=== PATIENT | male | born 1990 | race Caucasian/White ===

== ENCOUNTER 2017-04-09 00:20 | Emergency (ER) | payer MEDICAID ==
[2017-04-09 00:24] VITALS: RESP 18
[2017-04-09] MEDS ORDERED: methylPREDNISolone SOD SUCCI 125 MG/2 ML VIAL IV STA (00:47)
[2017-04-09] MEDS ORDERED: FAMOTIDINE 20 MG/2 ML VIAL IV STA (00:47)
[2017-04-09] MEDS ORDERED: EPINEPHrine 1 MG/ML 1 ML AMP IM STA (00:48)
--- NOTE | 2017-04-09 01:22 | ED ---
Allergic Reaction HPI - General Chief complaint: Allergic Reaction Stated complaint: allergic reaction Time Seen by Provider: 04/09/17 00:47 Source: patient, RN notes reviewed Mode of arrival: ambulatory Limitations: no limitations - History of Present Illness Initial Comments: this is a 26-year-old male presents emergency from for ALLERGIC reaction. Patient states to have ALLERGIC reactions in the past similar to this and states he is use EpiPen. Patient states that he started earlier with lip swelling took some Benadryl no relief. Patient states that he feels itching slightly has is. Patient states that he does not know what was different today. He states that he normal foods that he usually eats. Patient states his testicle positive on ALLERGY testing for week and test bites. - Related Data Previous Rx's Medication Instructions Recorded EPINEPHrine (Auto Inject) [Epipen] 0.3 mg IM ONCE PRN #1 pack 04/09/17 Allergies Allergy/AdvReac Type Severity Reaction Status Date / Time No Known Allergies Allergy Verified 04/09/17 00:24 Review of Systems ROS Statement: Those systems with pertinent positive or pertinent negative responses have been documented in the HPI. ROS Other: All systems not noted in ROS Statement are negative. Past Medical History Past Medical History: No Reported History History of Any Multi-Drug Resistant Organisms: None Reported Past Surgical History: No Surgical Hx Reported Past Psychological History: No Psychological Hx Reported Smoking Status: Never smoker Past Alcohol Use History: Occasional Past Drug Use History: None Reported General Exam Limitations: no limitations General appearance: alert, in no apparent distress Head exam: Present: atraumatic, normocephalic, normal inspection Eye exam: Present: normal appearance, PERRL, EOMI. Absent: scleral icterus, conjunctival injection, periorbital swelling ENT exam: Present: mucous membranes moist, TM's normal bilaterally, normal external ear exam. Absent: normal oropharynx (mild angioedema noted) Neck exam: Present: normal inspection, full ROM. Absent: tenderness, meningismus, lymphadenopathy Respiratory exam: Present: normal lung sounds bilaterally. Absent: respiratory distress, wheezes, rales, rhonchi, stridor Cardiovascular Exam: Present: normal rhythm, tachycardia, normal heart sounds. Absent: systolic murmur, diastolic murmur, rubs, gallop, clicks Course Vital Signs 04/09/17 00:22 Temperature 97.2 F L Pulse Rate 110 H Respiratory 18 Rate Blood Pressure 142/92 O2 Sat by Pulse 96 Oximetry - Reevaluation(s) Reevaluation #1: 04/09/17 01:40 patient was reevaluated states that he is symptom-free patient states all symptoms have resolved. Patient has been present for 1 hour. After medications Medical Decision Making - Medical Decision Making 26-year-old male presented for ALLERGIC reaction. Patient be discharged with epinephrine. Patient states he has his symptoms have completely resolved. Return parameters discussed. Disposition Clinical Impression: Allergic reaction Disposition: HOME SELF-CARE Condition: Stable Instructions: Anaphylaxis (ED) Additional Instructions: Please return to the Emergency Department if symptoms worsen or any other concerns. Prescriptions: EPINEPHrine (Auto Inject) [Epipen] 0.3 mg IM ONCE PRN #1 pack PRN Reason: Anaphylaxis Referrals: John Chavez MD [Primary Care Provider] - 1-2 days Time of Disposition: 01:41
[2017-04-09 01:57] VITALS: BP 157/90; PULSE 105; TEMP 98
== END 2017-04-09 01:57 | disposition home or self-care (01) ==
LOC: EC 00:20
DX: T78.40XA Allergy, unspecified, initial encounter (principal); T78.3XXA Angioneurotic edema, initial encounter
CPT/HCPCS: 99283; 96374; 96375; 96372; J0171; J2930

== ENCOUNTER → 2017-04-19 | Outpatient (CLI) | payer MEDICAID ==
[2017-04-19 19:46] LABS: ANA w/Reflex to Titer NEGATIVE (NEGATIVE); Gliadin AB IgA, Deaminated NEGATIVE (NEGATIVE); Gliadin AB IgG, Deaminated NEGATIVE (NEGATIVE); Gliadin AB IgG, Unit 0.5 U/mL; Tis Transglutaminase IgA Unit <0.5 AI; Tis Transglutaminase IgG Unit <0.8 U/mL
[2017-04-22 13:33] LABS: Barley IgE <0.35 kU/L (<0.35); Barley IgE Class CLASS 0; Celery IgE <0.35 kU/L (<0.35); Celery IgE Class CLASS 0; Gluten IgE Class CLASS I; Oat IgE Class CLASS 0; Rye (Food) IgE <0.35 kU/L (<0.35); Rye (Food) IgE Class CLASS 0
[2017-04-22 14:53] LABS: Mis test requested (Blood) Sesame Seed IgE
== END ==
LOC: LABWHC1 11:34
PROVIDERS: ATTEND Physician Assistant
DX: T78.09XD Anaphylactic reaction due to other food products, subsequent encounter (principal)
CPT/HCPCS: 36415; 82785; 83516; 83520; 86003; 86038

== ENCOUNTER → 2018-08-19 | Outpatient (CLI) | payer MEDICAID ==
[2018-08-19 11:20] LABS: HCT 46.5 % (39.0-53.0); HGB 15.2 gm/dL (13.0-17.5); MCH 30.8 pg (25.0-35.0); MCHC 32.7 g/dL (31.0-37.0); MCV 94.4 fL (80.0-100.0); Mean Platelet Volume 6.6; Platelet Count 340 k/uL (150-450); RBC 4.93 m/uL (4.30-5.90); RDW 12.1 % (11.5-15.5); WBC 7.6 k/uL (3.8-10.6)
[2018-08-19 17:03] LABS: Albumin 4.5 g/dL (3.80-4.90); Albumin/Globulin Ratio 1.88 (1.20-2.10); Anion Gap 8.7 mmol/L (4.00-12.00); Calcium 9.3 mg/dL (8.7-10.3); Carbon Dioxide 26.3 mmol/L (21.6-31.8); Globulin 2.4 g/dL (2.1-3.7); LDL Cholesterol,Calculated 161.4 mg/dL (0.0-131.0); Potassium 4.1 mmol/L (3.5-5.5); Total Bilirubin 0.6 mg/dL (0.3-1.2); Total Protein 6.9 g/dL (6.2-8.2); VLDL Calculation 29.6 mg/dL (5.00-40.00)
== END | disposition home or self-care (01) ==
LOC: LABWHC1 10:22
PROVIDERS: ATTEND Family Medicine
DX: Z00.00 Encounter for general adult medical examination without abnormal findings (principal)
CPT/HCPCS: 36415; 80053; 80061; 85027

== ENCOUNTER 2019-01-25 08:17 | Emergency (ER) | payer MEDICAID ==
[2019-01-25 08:23] VITALS: BP 142/81; PULSE 98; RESP 18; TEMP 98.3
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
--- NOTE | 2019-01-25 08:54 | XR ---
EXAMINATION TYPE: XR ankle limited RT , 2 VIEWS DATE OF EXAM ORDERED: 01/25/2019 HISTORY: Pain. COMPARISON: None. FINDINGS: No fracture, dislocation or ankle joint effusion is seen. IMPRESSION: NO ACUTE OSSEOUS LESION.
--- NOTE | 2019-01-25 08:55 | XR ---
EXAMINATION TYPE: XR foot complete RT , 3 VIEWS DATE OF EXAM ORDERED: 01/25/2019 HISTORY: Pain. COMPARISON: None. FINDINGS: No fracture, dislocation or other acute osseous lesion is seen. IMPRESSION: NO ACUTE OSSEOUS LESION.
== END 2019-01-25 09:59 | disposition home or self-care (01) ==
LOC: EC 08:17
DX: S93.601A Unspecified sprain of right foot, initial encounter (principal); W17.81XA Fall down embankment (hill), initial encounter; Y93.89 Activity, other specified
CPT/HCPCS: 99284

== ENCOUNTER 2020-05-01 22:06 | Emergency (ER) | payer BC, MEDICAID ==
[2020-05-01 22:12] VITALS: RESP 18; TEMP 97.8
[2020-05-01] MEDS ORDERED: methylPREDNISolone SOD SUCCI 125 MG/2 ML VIAL IV STA (22:20)
[2020-05-01] MEDS ORDERED: FAMOTIDINE 20 MG/2 ML VIAL IV STA (22:20)
--- NOTE | 2020-05-01 23:34 | ED ---
Allergic Reaction HPI - General Chief complaint: Allergic Reaction Stated complaint: allergic reaction Time Seen by Provider: 05/01/20 22:13 Source: patient Mode of arrival: ambulatory Limitations: no limitations - History of Present Illness Initial Comments: 29-year-old male patient presents to the emergency department today for evaluation of generalized hives and itching. Patient states he has a known week ALLERGY. States he went to a restaurant to eat a meal that he has had multiple times in the past. Patient states after dinner he started to feel itchy and developed rash over his trunk. Patient states he started to have lip swelling and nasal swelling. Patient denies any throat swelling or trouble breathing. Denies any abdominal pain. Patient states he did take a total of 50 mg of Benadryl over the last couple of hours without relief. He does have an EpiPen but did not use it. Patient denies any recent rash, fever, chills, cough, chest pain, nausea, vomiting, diarrhea, constipation, back pain, numbness, tingling, dizziness, weakness, hematuria, dysuria, urinary urgency, urinary frequency, headache, visual changes, or any other complaints. - Related Data Home Medications Medication Instructions Recorded Confirmed Acetaminophen Tab [Tylenol Tab] 1,000 mg PO Q6HR PRN 01/25/19 01/25/19 Previous Rx's Medication Instructions Recorded EPINEPHrine (Auto Inject) [Epipen] 0.3 mg IM ONCE PRN #1 pack 04/09/17 Ibuprofen 600 mg PO TID #30 tablet 01/25/19 Famotidine [Pepcid] 20 mg PO DAILY #3 tablet 05/01/20 predniSONE 50 mg PO DAILY #3 tab 05/01/20 Allergies Allergy/AdvReac Type Severity Reaction Status Date / Time No Known Allergies Allergy Verified 01/25/19 09:00 Review of Systems ROS Statement: Those systems with pertinent positive or pertinent negative responses have been documented in the HPI. ROS Other: All systems not noted in ROS Statement are negative. Past Medical History Past Medical History: No Reported History History of Any Multi-Drug Resistant Organisms: None Reported Past Surgical History: No Surgical Hx Reported Past Psychological History: No Psychological Hx Reported Past Alcohol Use History: Occasional Past Drug Use History: None Reported General Exam Limitations: no limitations General appearance: alert, in no apparent distress, other (This is a well- developed, well-nourished adult male patient in no acute distress. Vital signs upon presentation are temperature 97.8F, pulse 97, respirations 18, blood pressure 160/80, pulse ox 99% on room air.) Eye exam: Present: normal appearance, PERRL, EOMI. Absent: scleral icterus, conjunctival injection, periorbital swelling ENT exam: Present: normal exam, normal oropharynx, mucous membranes moist Respiratory exam: Present: normal lung sounds bilaterally. Absent: respiratory distress, wheezes, rales, rhonchi, stridor Cardiovascular Exam: Present: regular rate, normal rhythm, normal heart sounds. Absent: systolic murmur, diastolic murmur, rubs, gallop, clicks GI/Abdominal exam: Present: soft, normal bowel sounds. Absent: distended, tenderness, guarding, rebound, rigid Neurological exam: Present: alert, oriented X3, CN II-XII intact Psychiatric exam: Present: normal affect, normal mood Skin exam: Present: warm, dry, intact, normal color, rash (Generalized urticarial rash) Course Vital Signs 05/01/20 05/01/20 22:07 23:49 Temperature 97.8 F Pulse Rate 97 78 Respiratory 18 18 Rate Blood Pressure 160/80 134/87 O2 Sat by Pulse 99 100 Oximetry Medical Decision Making - Medical Decision Making 29-year-old male patient presents to the emergency department today for evaluation of generalized rash most likely from ALLERGIC reaction. Physical examination did reveal generalized urticaria with erythema. No throat swelling. Lungs are clear to auscultation, abdomen is soft and nontender. IV was insert ed patient was given Pepcid and solu-medrol. Patient was monitored in the department. Upon reevaluation he does report improvement of symptoms. Rash has improved. He will be discharged with prescription for Pepcid and prednisone. He is instructed take Benadryl every 6 hours as needed. He is instructed to follow-up with his primary care physician for recheck in 1-2 days. Return parameters were discussed in detail. He verbalizes understanding and agrees with this plan. Disposition Clinical Impression: Allergic reaction Disposition: HOME SELF-CARE Condition: Good Instructions (If sedation given, give patient instructions): Urticaria (ED), General Allergic Reaction (ED) Additional Instructions: Continue medications as directed. Follow-up through primary care physician for recheck in 1-2 days. Return to the emergency department immediately for any new, worsening, or concerning symptoms. Prescriptions: Famotidine [Pepcid] 20 mg PO DAILY #3 tablet predniSONE 50 mg PO DAILY #3 tab Is patient prescribed a controlled substance at d/c from ED?: No Referrals: John Chavez MD [Primary Care Provider] - 1-2 days Time of Disposition: 23:33
[2020-05-01 23:49] VITALS: BP 134/87; PULSE 78
== END 2020-05-01 23:48 | disposition home or self-care (01) ==
LOC: EC 22:06
DX: T78.40XA Allergy, unspecified, initial encounter (principal)
CPT/HCPCS: 99283; 96374; 96375; J2930

== ENCOUNTER 2020-08-15 21:12 | Emergency (ER) | payer BC ==
[2020-08-15 21:16] VITALS: BP 137/84; PULSE 92; RESP 18; TEMP 99
[2020-08-15] MEDS ORDERED: methylPREDNISolone SOD SUCCI 125 MG/2 ML VIAL IV STA (21:38)
[2020-08-15] MEDS ORDERED: SODIUM CHLORIDE 0.9% 500 ML 500 ML IV ONE (21:39)
[2020-08-15] MEDS ORDERED: FAMOTIDINE 20 MG/2 ML VIAL IV STA (21:39)
[2020-08-15] MEDS ORDERED: diphenhydrAMINE 50 MG/ML 1 ML VIAL IVP STA (21:39)
--- NOTE | 2020-08-15 22:29 | ED ---
Allergic Reaction HPI - General Chief complaint: Allergic Reaction Stated complaint: Allergic reaction Time Seen by Provider: 08/15/20 21:19 Source: patient Mode of arrival: ambulatory Limitations: no limitations - History of Present Illness Initial Comments: 30yo male presenting for cc of rash. He statse he breaks out in this rash when he eats gluten. He statse he believes there was gluten in the sub he has today. Denies tongue or lip swelling, denies vomiting, wheezing. Patient denies fevers or URI symptms. Denies vesicular lesions or peeling of skin. Patient states that he broke out in the rash shortly after earing the sub. Patient has no additional complaints. States steroids helped in past. - Related Data Home Medications Medication Instructions Recorded Confirmed Acetaminophen Tab [Tylenol Tab] 1,000 mg PO Q6HR PRN 01/25/19 01/25/19 Previous Rx's Medication Instructions Recorded EPINEPHrine (Auto Inject) [Epipen] 0.3 mg IM ONCE PRN #1 pack 04/09/17 Ibuprofen 600 mg PO TID #30 tablet 01/25/19 Famotidine [Pepcid] 20 mg PO DAILY #3 tablet 05/01/20 predniSONE 50 mg PO DAILY #3 tab 05/01/20 predniSONE 50 mg PO DAILY 4 Days #4 tab 08/15/20 Allergies Allergy/AdvReac Type Severity Reaction Status Date / Time gluten Allergy Rash/Hives Verified 08/15/20 21:16 Review of Systems ROS Statement: Those systems with pertinent positive or pertinent negative responses have been documented in the HPI. ROS Other: All systems not noted in ROS Statement are negative. Past Medical History Past Medical History: Hyperlipidemia, Hypertension History of Any Multi-Drug Resistant Organisms: None Reported Past Surgical History: No Surgical Hx Reported Past Psychological History: No Psychological Hx Reported Smoking Status: Never smoker Past Alcohol Use History: Occasional Past Drug Use History: None Reported General Exam - General Exam Comments Initial Comments: General: The patient is awake and alert, in no distress, and does not appear acutely ill. Eye: Pupils are equal, round and reactive to light, extra-ocular movements are intact. No nystagmus. There is normal conjunctiva bilaterally. No signs of icterus. Ears, nose, mouth and throat: There are moist mucous membranes and no oral lesions. No tongue swelling, no lip swelling. Cardiovascular: There is a regular rate and rhythm. No murmur, rub or gallop is appreciated. Respiratory: Lungs are clear to auscultation, respirations are non-labored, breath sounds are equal. No wheezes, stridor, rales, or rhonchi. Gastrointestinal: Soft, non-distended, non-tender abdomen without masses or organomegaly noted. There is no rebound or guarding present. Musculoskeletal: Normal ROM, no tenderness. Strength 5/5. Sensation intact. Radial pulses equal bilaterally 2+. Neurological: A&O x 3. CN II-XII intact grossly, There are no obvious motor or sensory deficits. Coordination appears grossly intact. Speech is normal. Skin: Skin is warm and dry. Raised red wheels on the arms, chest abdomen. Psychiatric: Cooperative, appropriate mood & affect, normal judgment. Limitations: no limitations Course Vital Signs 08/15/20 21:14 Temperature 99.0 F Pulse Rate 92 Respiratory 18 Rate Blood Pressure 137/84 O2 Sat by Pulse 99 Oximetry Medical Decision Making - Medical Decision Making Appearing 30-year-old male presenting for rash after eating possibly gluten. 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 No signs of anaphylaxis patient appears well nontoxic is urticaria present on examination. Patient had significant improvement of the exanthem after steroids, pepcid, benadryl. Will be discharged with oral prednisone and return parameters, agreeable to care plan and prefers discharge at this time. Disposition Clinical Impression: Allergic reaction Disposition: HOME SELF-CARE Condition: Good Instructions (If sedation given, give patient instructions): Anaphylaxis (ED) Additional Instructions: Please use medication as discussed. Please follow-up with family doctor in the next 2 days. Please return to emergency room if the symptoms increase or worsen or for any other concerns. Prescriptions: predniSONE 50 mg PO DAILY 4 Days #4 tab Is patient prescribed a controlled substance at d/c from ED?: No Referrals: John Chavez MD [Primary Care Provider] - 1-2 days Time of Disposition: 22:28
== END 2020-08-15 22:37 | disposition home or self-care (01) ==
LOC: EC 21:12
DX: T78.40XA Allergy, unspecified, initial encounter (principal); Z91.018 Allergy to other foods
CPT/HCPCS: 99283; 96374; 96375; J1200; J2930

== ENCOUNTER 2020-08-28 19:55 | Emergency (ER) | payer BC ==
[2020-08-28 20:02] VITALS: RESP 18
[2020-08-28] MEDS ORDERED: methylPREDNISolone SOD SUCCI 125 MG/2 ML VIAL IV STA (20:30)
[2020-08-28] MEDS ORDERED: FAMOTIDINE 20 MG/2 ML VIAL IV STA (20:30)
--- NOTE | 2020-08-28 22:07 | ED ---
Allergic Reaction HPI - General Chief complaint: Allergic Reaction Stated complaint: Poss allergic reaction Source: patient Mode of arrival: ambulatory Limitations: no limitations - History of Present Illness Initial Comments: Patient is a 30 year old male with past mental history of gluten ALLERGY who presents to the emergency department with reported ALLERGIC reaction. Patient states that around 6:30 PM he had some onset of hives and throat itching. Patient reports that he makes all his food at home and has no new exposures. Admits to mild associated shortness of breath. He took 50 mg of Benadryl at home before presenting to the emergency room. States that he does have an EpiPen however did not feel the need to use it. He has not seen an garage door opener installer in several years. Denies any other sensitivities. No nausea or vomiting. No abdominal pain. No fevers or chills. No other alleviating, precipitating or modifying factors - Related Data Home Medications Medication Instructions Recorded Confirmed Acetaminophen Tab [Tylenol Tab] 1,000 mg PO Q6HR PRN 01/25/19 01/25/19 Previous Rx's Medication Instructions Recorded EPINEPHrine (Auto Inject) [Epipen] 0.3 mg IM ONCE PRN #1 pack 04/09/17 Ibuprofen 600 mg PO TID #30 tablet 01/25/19 Famotidine [Pepcid] 20 mg PO DAILY #3 tablet 05/01/20 predniSONE 50 mg PO DAILY #3 tab 05/01/20 predniSONE 50 mg PO DAILY 4 Days #4 tab 08/15/20 Famotidine [Pepcid] 20 mg PO DAILY #5 tablet 08/28/20 Loratadine-Pseudoeph 10-240 mg 1 tab PO DAILY #24 tab 08/28/20 [Claritin-D 24 Hour] predniSONE [Deltasone] 20 mg PO BID #10 tab 08/28/20 Allergies Allergy/AdvReac Type Severity Reaction Status Date / Time gluten Allergy Rash/Hives Verified 08/28/20 20:02 Review of Systems ROS Statement: Those systems with pertinent positive or pertinent negative responses have been documented in the HPI. ROS Other: All systems not noted in ROS Statement are negative. Past Medical History Past Medical History: Hyperlipidemia, Hypertension History of Any Multi-Drug Resistant Organisms: None Reported Past Surgical History: No Surgical Hx Reported Past Psychological History: No Psychological Hx Reported Smoking Status: Never smoker Past Alcohol Use History: Occasional Past Drug Use History: None Reported General Exam Limitations: no limitations Course Vital Signs 08/28/20 08/28/20 08/28/20 19:59 21:20 22:15 Temperature 98.1 F 98.4 F 98.2 F Pulse Rate 102 H 85 82 Respiratory 18 18 18 Rate Blood Pressure 134/94 136/85 132/78 O2 Sat by Pulse 97 97 98 Oximetry Medical Decision Making - Medical Decision Making Upon arrival the patient is placed into room 18. He is covered in diffuse hives. Peripheral IV is established. Patient was given a dose of Solu-Medrol and Pepcid. He is observed for approximately 2 hours and does have almost complete resolution of his hives. Patient also reports to improvement to his airway itching. Patient be discharged at this home with a 5 day regimen of Claritin, Pepcid and prednisone. Patient does have an EpiPen at home. Discussed with patient to follow up with his primary care doctor and garage door opener installer. Patient is to this. Return to the emergency room for any new or worsening symptoms. Patient discharged with stable condition Disposition Clinical Impression: Allergic reaction Disposition: HOME SELF-CARE Condition: Stable Instructions (If sedation given, give patient instructions): Urticaria (ED) Additional Instructions: Take the medications as directed for at least the next 5 days. Follow-up with the garage door opener installer. Return to the emergency room for any new or worsening symptoms Prescriptions: Loratadine-Pseudoeph 10-240 mg [Claritin-D 24 Hour] 1 tab PO DAILY #24 tab predniSONE [Deltasone] 20 mg PO BID #10 tab Famotidine [Pepcid] 20 mg PO DAILY #5 tablet Is patient prescribed a controlled substance at d/c from ED?: No Referrals: John Chavez MD [Primary Care Provider] - 1-2 days Yeny Yost MD [STAFF PHYSICIAN] - 1-2 days Time of Disposition: 22:06
[2020-08-28 22:28] VITALS: BP 132/78; PULSE 82; TEMP 98.2
== END 2020-08-28 22:15 | disposition home or self-care (01) ==
LOC: EC 19:55
DX: T78.40XA Allergy, unspecified, initial encounter (principal); Z91.09 Other allergy status, other than to drugs and biological substances
CPT/HCPCS: 99284; 96374; 96375; J2930

== ENCOUNTER 2022-03-01 07:57 | Emergency (ER) | payer BC ==
[2022-03-01] MEDS ORDERED: methylPREDNISolone SOD SUCCI 125 MG/2 ML VIAL IV STA (08:05)
[2022-03-01] MEDS ORDERED: FAMOTIDINE 20 MG/2 ML VIAL IV STA (08:05)
[2022-03-01] MEDS ORDERED: diphenhydrAMINE 50 MG/ML 1 ML VIAL IVP STA (08:05)
[2022-03-01] MEDS ORDERED: SODIUM CHLORIDE 0.9% 500 ML 500 ML IV ONE (08:06)
--- NOTE | 2022-03-01 09:22 | ED ---
Allergic Reaction HPI - General Chief complaint: Allergic Reaction Stated complaint: Allergic Reaction Time Seen by Provider: 03/01/22 07:59 Source: patient, family, RN notes reviewed Mode of arrival: ambulatory Limitations: no limitations - History of Present Illness Initial Comments: 31-year-old male presents emergency Department with chief complaint ALLERGIC reaction. Patient states he woke up and started feeling itchy all over since noticed some rash she did take 50 mg of Benadryl. Patient states that has not helped. Patient has mild shortness of breath. Patient does have an EpiPen as she's had multiple reactions in the past most that the glue. He denies eating anything today. No new products. Patient offers no complaints. - Related Data Home Medications Medication Instructions Recorded Confirmed Atorvastatin [Lipitor] 10 mg PO HS 03/01/22 03/01/22 Dextroamphetamine/Amphetamine 20 mg PO DAILY 03/01/22 03/01/22 [Adderall Xr] Escitalopram Oxalate [Lexapro] 20 mg PO DAILY 03/01/22 03/01/22 Multivitamins, Thera [Multivitamin 1 tab PO DAILY 03/01/22 03/01/22 (formulary)] Previous Rx's Medication Instructions Recorded predniSONE 50 mg PO DAILY #5 tab 03/01/22 Allergies Allergy/AdvReac Type Severity Reaction Status Date / Time gluten Allergy Rash/Hives Verified 03/01/22 08:52 Review of Systems ROS Statement: Those systems with pertinent positive or pertinent negative responses have been documented in the HPI. ROS Other: All systems not noted in ROS Statement are negative. Past Medical History Past Medical History: Hyperlipidemia, Hypertension History of Any Multi-Drug Resistant Organisms: None Reported Past Surgical History: No Surgical Hx Reported Past Psychological History: No Psychological Hx Reported Smoking Status: Never smoker Past Alcohol Use History: Occasional Past Drug Use History: None Reported General Exam Limitations: no limitations General appearance: alert, in no apparent distress Head exam: Present: atraumatic, normocephalic, normal inspection Eye exam: Present: normal appearance, PERRL, EOMI. Absent: scleral icterus, conjunctival injection, periorbital swelling ENT exam: Present: normal exam, normal oropharynx, mucous membranes moist Neck exam: Present: normal inspection. Absent: tenderness, meningismus, lymphadenopathy Respiratory exam: Present: normal lung sounds bilaterally. Absent: respiratory distress, wheezes, rales, rhonchi, stridor Cardiovascular Exam: Present: normal rhythm, tachycardia, normal heart sounds. Absent: systolic murmur, diastolic murmur, rubs, gallop, clicks GI/Abdominal exam: Present: soft, normal bowel sounds. Absent: distended, tenderness, guarding, rebound, rigid Skin exam: Present: warm, dry, intact, normal color, rash, urticaria Course Vital Signs 03/01/22 03/01/22 07:57 09:22 Temperature 98.1 F 98 F Pulse Rate 115 H 74 Respiratory 18 16 Rate Blood Pressure 128/84 134/74 O2 Sat by Pulse 97 98 Oximetry Medical Decision Making - Medical Decision Making Patient diffuse urticaria patient was given Benadryl Solu-Medrol Pepcid patient felt greatly improved patient we discharged in stable condition patient advised take any history throughout the day as directed, given prednisone and patient has EpiPen. Disposition Clinical Impression: Allergic reaction Disposition: HOME SELF-CARE Condition: Stable Instructions (If sedation given, give patient instructions): General Allergic Reaction (ED) Additional Instructions: Please return to the Emergency Department if symptoms worsen or any other concerns. Prescriptions: predniSONE 50 mg PO DAILY #5 tab Is patient prescribed a controlled substance at d/c from ED?: No Referrals: John Chavez MD [Primary Care Provider] - 1-2 days Time of Disposition: 09:22
[2022-03-01 09:23] VITALS: BP 134/74; PULSE 74; RESP 16; TEMP 98
== END 2022-03-01 09:26 | disposition home or self-care (01) ==
LOC: EC 07:57
DX: T78.40XA Allergy, unspecified, initial encounter (principal); L50.0 Allergic urticaria; I10 Essential (primary) hypertension; E78.5 Hyperlipidemia, unspecified; Z79.899 Other long term (current) drug therapy
CPT/HCPCS: 99284; 96374; 96375 ×2; J1200; J2930